=== PATIENT | male | born 1980 ===

== ENCOUNTER → 2025-01-11 | Outpatient (CLI) | payer MEDICAID, SELFPAY | END | disposition home or self-care (01) | PROVIDERS: PCP Family Medicine; Referring Provider Family Medicine; Visit Provider Student in an Organized Health Care Education/Training Program | DX: L30.9 Dermatitis, unspecified (principal); I95.9 Hypotension, unspecified; G40.89 Other seizures; Z99.3 Dependence on wheelchair; J44.9 Chronic obstructive pulmonary disease, unspecified | CPT/HCPCS: 99213; G0463 ==

== ENCOUNTER → 2025-03-21 | Outpatient (CLI) | payer MEDICAID, SELFPAY ==
--- NOTE | 2025-03-21 10:00 | XR_ITS ---
Examination: CT abdomen, without intravenous contrast. CT pelvis, without intravenous contrast. CT abdomen, with intravenous contrast. CT pelvis, with intravenous contrast. 2-D sagittal coronal reconstructions. Date and time of exam:March 21, 2025 1104 hours Comparison December 26, 2023 INDICATIONS: Gastrostomy tube leakage several years, esophageal reflux CTDI: vol (mGy) 16.9 DLP: (mGycm) 831 Technique: Multiple 3.0 axial images of the abdomen and pelvis without intravenous contrast, 3.0 mm slice thickness. Multiple 3.0 postcontrast images abdomen and pelvis also obtained, post intravenous injection 50 cc [id number] 2-D sagittal and coronal reconstructions. Low dose protocols were performed. One or more of the following dose reduction techniques were used; automated exposure control, adjustment of the mA and/or KV according to patient size, use of iterative reconstruction technique. Findings: No focal liver or splenic lesions No gallstones Diffuse pancreatic calcifications Gastrostomy tube in the stomach with no abscess depicted There is thickening of the gastrostomy tract extending from the skin surface Mucosa in the stomach appears thickened Staghorn left renal calculi, atrophic end-stage right kidney No bowel obstruction Abdominal aorta is not enlarged Normal appendix Abundant stool throughout the colon Intact urinary bladder IMPRESSION: Gastrostomy tube in the stomach with no abscess depicted Gastritis pattern Mild thickening of the gastrostomy tract extending from the stomach to the skin surface No bowel obstruction Nonobstructing left renal staghorn calculi
== END | disposition home or self-care (01) ==
PROVIDERS: PCP Family Medicine; Referring Provider Internal Medicine Gastroenterology; Visit Provider Internal Medicine Gastroenterology
DX: K92.89 Other specified diseases of the digestive system (principal); Z93.1 Gastrostomy status; N20.0 Calculus of kidney
CPT/HCPCS: 74178; A4649; Q9967

== ENCOUNTER → 2025-04-21 | Outpatient (CLI) | payer MEDICAID, SELFPAY ==
--- NOTE | 2025-04-21 14:00 | XR_ITS ---
Examination: CT chest with intravenous contrast CT abdomen with intravenous contrast CT pelvis with intravenous contrast CT chest without intravenous contrast CT abdomen without intravenous contrast CT pelvis without intravenous contrast 2-D coronal and sagittal reconstructions Time of exam: April 21, [address] abdomen pelvis without contrast March 21, 2025 INDICATIONS: Gastroesophageal reflux disease heartburn months CTDI: vol (mGy) : 22.7 DLP: (mGycm): 1112 Technique: Multiple axial images of the chest, abdomen and pelvis with intravenous contrast, 3.0 mm slice thickness. Images obtained pre-post intravenous injection Isovue 370 60 cc 2-D sagittal coronal reconstructions Nodose protocols, adjustment MA KV according to patient size FINDINGS: No thoracic aortic aneurysmal dilatation No pulmonary artery filling defects No paratracheal tracheobronchial or bronchopulmonary adenopathy No pneumonia or pulmonary edema or pleural disease Severe thoracic levoscoliosis thoracolumbar dextroscoliosis There is wall thickening involving the distal esophagus with small retrocardiac gastric hernia No focal liver or splenic lesions Gallstones No pancreatic mass Abdominal aorta is not enlarged Gastrostomy tube in the stomach Gastric shay appear thickened Abundant stool throughout the colon 12 mm fat-containing umbilical hernia The films do not include the entire pelvis IMPRESSION: Negative for pulmonary artery emboli No thoracic aortic aneurysm No mediastinal lymphadenopathy No pneumonia, pulmonary edema or pleural disease. Abnormal thickening of the lower wall of the esophagus, consider esophagram follow-up Cholelithiasis No focal liver or splenic lesions Abundant stool throughout the entire colon Gastritis pattern
== END | disposition home or self-care (01) ==
PROVIDERS: PCP Internal Medicine Gastroenterology; Referring Provider Internal Medicine Gastroenterology; Visit Provider Internal Medicine Gastroenterology
DX: K80.20 Calculus of gallbladder without cholecystitis without obstruction (principal); K42.9 Umbilical hernia without obstruction or gangrene; M41.9 Scoliosis, unspecified
CPT/HCPCS: 71270; 74178; A4649; Q9967